=== PATIENT | female | born 2000 | race Caucasian/White ===

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

== ENCOUNTER 2022-08-31 06:14 | Emergency (ER) | payer MEDICAID ==
[~2022-08-31] VITALS: Ht 165.1 cm; Wt 84.5 kg
[2022-08-31 06:37] VITALS: BP 144/102
== END 2022-08-31 13:43 | disposition left against medical advice (07) ==
LOC: ER 06:14
DX: Z53.21 Procedure and treatment not carried out due to patient leaving prior to being seen by health care provider (principal)
CPT/HCPCS: 99281